=== PATIENT | female | born 2000 | race Caucasian/White ===

== ENCOUNTER 2024-08-09 13:38 | Emergency (ER) | payer MEDICAID ==
[~2024-08-09] VITALS: Ht 160 cm; Wt 104.3 kg
[2024-08-09 13:48] VITALS: O2SAT 99
[2024-08-09] MEDS: FLUORESCEIN SODIUM 1MG/STRIP LEFTEYE ONE (16:14)
[2024-08-09] MEDS: TETRACAINE 0.5% OPHTH DROPS 4ML LEFTEYE ONE (16:14)
[2024-08-09] MEDS ORDERED: OCUFLX LEFTEYE (16:29)
[2024-08-09 16:40] VITALS: BP 116/76; PULSE 74; RESP 16; TEMP 36.94740; O2SAT 99
== END 2024-08-09 16:43 | disposition home or self-care (01) ==
LOC: ER 13:38
DX: H57.89 Other specified disorders of eye and adnexa (principal); J45.909 Unspecified asthma, uncomplicated; E11.9 Type 2 diabetes mellitus without complications; Z90.49 Acquired absence of other specified parts of digestive tract
CPT/HCPCS: 99283